=== PATIENT | female | born 1955 | race Caucasian/White ===

== ENCOUNTER 2020-11-21 09:00 | Day surgery (SDC) | payer OTHER ==
[~2020-11-21] VITALS: Ht 162.6 cm; Wt 122.7 kg
[~2020-11-21 09:00] MED LIST: ALLOPURINOL300 MG PO; FLUOXETINE HCL20 MG PO; GLUCOPHAGE1000 MG PO
[2020-11-21] MEDS ORDERED: VICTOZA 2-0.6 MG/0.1 SUB-Q (09:21)
--- NOTE | 2020-11-21 11:03 | NUR ---
11/21/20 1103 Ban Gomes 1046 PT ARRIVED TO PACU ON 2L VIA NC PT WAKES OFF AND ON. VSS. 1102 O2 REMOVED AND PT SIPPING SODA PER REQUEST. PT DENIES PAIN AND NAUSEA.
--- NOTE | 2020-11-22 07:26 | OR ---
[facility] [address], [place] [address] Signed DATE OF OPERATION: 11/21/2020 SURGEON: Miesha Naranjo MD PREOPERATIVE DIAGNOSES: 1. Lifelong Crohn disease. 2. Constipation, diarrhea. 3. Possible irritable bowel syndrome. 4. Intermittent rectal bleeding, usually associated with constipation. 5. Hemorrhoids. POSTOPERATIVE DIAGNOSES: 1. Minimal internal hemorrhoids. 2. Minimal to moderate sigmoid diverticulosis. PROCEDURE: Colonoscopy with random cold biopsies. ESTIMATED BLOOD LOSS: None. INDICATIONS: Kimberly is a 65-year-old female with a body mass index of 46. She believes she has had symptoms associated with Crohn's disease back to age 1. She was formally diagnosed by Dr. Baum in 2004. She remembers sulfasalazine, but only took it as needed. From what she describes, this was a financial decision. She then had a colonoscopy in [address] Fox. Each time she had Crohn disease on her biopsies. Once again, she did not take her medication. She does describe alternating constipation and diarrhea and therefore has been labeled with irritable bowel syndrome. She has had with constipation she can get a very hard stool and then she has some rectal bleeding. She also describes hemorrhoids. There is no family history of colon cancer or polyps. No family history of inflammatory bowel disease. Dr. Fox has since retired. Therefore, she was asked to see me as a local general surgeon for followup colonoscopy. She is going to work out medications with her primary care provider. I gave her a pamphlet on as well as colonoscopy. She remembers colonoscopy quite well. She understands there is risk including, but not limited to gas bloating, crampy abdominal pain, bleeding, perforation requiring surgery, and missed diagnosis. She also understands the need for IV conscious sedation. She has undergone monitored anesthesia care in the past. However, we scheduled her today with our routine Versed and fentanyl. She had expressed understanding and wished to proceed. Electronically Signed By: MIESHA NARANJO MD 11/22/20 0726 PATIENT NAME: KIMBERLY MARQUEZ OPERATIVE REPORT DATE OF : 51 REPORT #: [id number] PHYSICIAN: MIESHA NARANJO MD PCP: CRISTELA CHRISTENSEN PA-C REPORT IS CONFIDENTIAL AND NOT TO BE RELEASED WITHOUT AUTHORIZATION [facility] [address], [place] [address] Signed PROCEDURE NOTE: Kimberly was taken in the endoscopy suite and placed in the left lateral decubitus position. She was given IV sedation with 175 mcg of fentanyl, 9 mg of Versed. We found that she has a long tortuous sigmoid colon. Therefore, the scope was dragging. We never quite convinced ourselves if we were at the hepatic flexure or beyond the hepatic flexure. We did not have an anesthesia provider to come and help with propofol infusion. After multiple attempts to advance the scope further, we decided that would not be successful. We found that her prep was quite good. We had done a digital rectal exam and found that her perianal hygiene was quite excellent. We did not see any evidence of any perianal fistula tracts. She had good sphincter tone. As the scope was withdrawn, we did not find any obvious inflammatory changes in the entire colon or rectum. We went ahead and took random biopsies for pathologic review. Once in the rectum, the scope had been retroflexed and she does have minimal internal hemorrhoid columns. After this, the gas was suctioned out and the colonoscope removed. Kimberly tolerated procedure quite well. RECOMMENDATIONS: I will see Kimberly back in my office in 7 to 14 days to review her results. For all future colonoscopy, she will definitely need monitored anesthesia care given her tortuous sigmoid colon. Miesha Naranjo MD ALB/MODL /[id number] cc: MD Bethany Briones PA Copies: MIESHA NARANJO MD ~ Electronically Signed By: MIESHA NARANJO MD 11/22/20 0726 PATIENT NAME: KIMBERLY MARQUEZ OPERATIVE REPORT DATE OF : 51 REPORT #: [id number] PHYSICIAN: MIESHA NARANJO MD PCP: CRISTELA CHRISTENSEN PA-C REPORT IS CONFIDENTIAL AND NOT TO BE RELEASED WITHOUT AUTHORIZATION
--- NOTE | 2020-11-22 15:02 | PATH ---
[facility] [address] [place], [place] [address] Signed SPECIMEN(S): A HEPATIC FLEXURE SPECIMEN(S): B DESCENDING SPECIMEN(S): C SIGMOID SPECIMEN(S): D RECTUM SPECIMEN SOURCE: A. HEPATIC FLEXURE B. DESCENDING C. SIGMOID D. RECTUM CLINICAL HISTORY: Colonoscopy. History of diarrhea, Crohn's disease, rectal bleeding. MICROSCOPIC DESCRIPTION: Histologic sections of all submitted blocks are examined by light microscopy. These findings, together with the gross examination, support the pathologic diagnosis. FINAL PATHOLOGIC DIAGNOSIS: A. Colon, hepatic flexure, biopsy: - Colonic mucosa with no histopathologic abnormality. - Negative for active, chronic, or microscopic colitis. - Negative for granulomas, dysplasia, or malignancy. B. Colon, descending, biopsy: - Colonic mucosa with no histopathologic abnormality. - Negative for active, chronic, or microscopic colitis. - Negative for granulomas, dysplasia, or malignancy. C. Colon, sigmoid, biopsy: - Colonic mucosa with no histopathologic abnormality. - Negative for active, chronic, or microscopic colitis. - Negative for granulomas, dysplasia, or malignancy. D. Rectum, biopsy: - Rectal mucosa with no histopathologic abnormality. - Negative for active or chronic proctitis. - Negative for granulomas, dysplasia, or malignancy. NAL:cml:C2NR GROSS DESCRIPTION: Four specimens are received in four containers labeled with "RH." A. The specimen, labeled "RH, 1," and designated on the requisition "hepatic flexure biopsy," is received in formalin and consists of one fragment of PATIENT NAME: KASHIF MARQUEZ PATHOLOGY DATE OF : 51 REPORT #: [id number] PHYSICIAN: NHAN SWANSON PCP: CRISTELA CHRISTENSEN PA-C REPORT IS CONFIDENTIAL AND NOT TO BE RELEASED WITHOUT AUTHORIZATION [facility] [address] [place], [place] [address] Signed pink-castle tissue (0.2 cm in greatest dimension). The specimen is submitted entirely in cassette (A1). B. The specimen, labeled "RH, 2," and designated on the requisition "descending/left biopsy," is received in formalin and consists of one fragment of pink-castle tissue (0.3 cm in greatest dimension). The specimen is submitted entirely in cassette (B1). C. The specimen, labeled "RH, 3," and designated on the requisition "sigmoid biopsy," is received in formalin and consists of one fragment of pink-castle tissue (0.3 cm in greatest dimension). The specimen is submitted entirely in cassette (C1). D. The specimen, labeled "RH, 4," and designated on the requisition "rectum biopsy," is received in formalin and consists of one fragment of pink-castle tissue (0.3 cm in greatest dimension). The specimen is submitted entirely in cassette (D1). AC (under the direct supervision of a pathologist) The Gross Description was prepared using a voice recognition system. The report was reviewed for accuracy; however, sound-alike word errors, addition and/or deletions may occur. If there is any question about this report, please contact Client Services. PERFORMING LABORATORY: The technical component was performed by [facility], [address] [place] [id number] (Glass [employer]oother: Patti Kimbrough MD; CLIA# [id number]). [facility] [address] [address] (CLIA# [id number]). Diagnostician: Irma Chin MD Pathologist Electronically Signed 11/22/2020 Copies: ~ PATIENT NAME: KASHIF MARQUEZ PATHOLOGY DATE OF : 51 REPORT #: [id number] PHYSICIAN: NHAN SWANSON PCP: CRISTELA CHRISTENSEN PA-C REPORT IS CONFIDENTIAL AND NOT TO BE RELEASED WITHOUT AUTHORIZATION
== END 2020-11-21 11:32 | disposition home or self-care (01) ==
LOC: DS 09:00
PROVIDERS: ATTEND Colon & Rectal Surgery
PROC: 0DBE8ZZ Excision of Large Intestine, Via Natural or Artificial Opening Endoscopic (ICD-10-PCS; principal; 2020-11-21 09:40)
DX: K64.8 Other hemorrhoids (principal); K57.30 Diverticulosis of large intestine without perforation or abscess without bleeding; K50.90 Crohn's disease, unspecified, without complications; K59.00 Constipation, unspecified; R19.7 Diarrhea, unspecified; E66.9 Obesity, unspecified; E03.9 Hypothyroidism, unspecified; E78.5 Hyperlipidemia, unspecified; J45.909 Unspecified asthma, uncomplicated; E11.9 Type 2 diabetes mellitus without complications; I10 Essential (primary) hypertension; G47.30 Sleep apnea, unspecified; Z68.42 Body mass index [BMI] 45.0-49.9, adult; Z79.84 Long term (current) use of oral hypoglycemic drugs; M40.209 Unspecified kyphosis, site unspecified
CPT/HCPCS: 99153; G0500; J0690; J2250; J3010; J7121